=== PATIENT | female | born 1975 | race Caucasian/White ===

== ENCOUNTER 2021-12-15 15:05 | Outpatient (CLI) | payer OTHER, SELFPAY ==
--- NOTE | ~2021-12-15 | CT_ITS ---
EXAMINATION: CT abdomen wo con DATE: 12/15/2021 15:22 INDICATION: Recurrent incisional hernia TECHNIQUE: Computed tomography (CT) of the abdomen was performed without intravenous contrast. Automa samina exposure control and iterative reconstruction technique were employed. Exam dose: 1150.28 mGy-cm total exam DLP. COMPARISON: None. FINDINGS: There is a 4.5 cm deep 6 cm vertical 4.8 cm wide fat-containing left periumbilical abdomina l wall hernia with 4.4 cm wide mouth, with a small bowel loop situated near the mouth of the hernia. No small bowel obstruction. Small sliding hiatal hernia. Postoperative change of the stomach. The liver, gallbladder, bile ducts, spleen, pancreas and pancreatic duct as well as the adrenal gland s and kidneys are unremarkable on this limited noncontrast examination. Normal caliber of the abdominal aorta. No intraperitoneal or retroperitoneal or pelvic mass lesion or adenopathy or ascites. Included skeletal structures are unremarkable other than degenerative spurring of the thoracic and to a lesser extent lumbar spine. No suspicious osteolytic or osteoblastic lesions. The lung bases are clear. Heart size is normal. No pericardial or pleural effusion. IMPRESSION: 4.5 x 6 x 4.8 cm left periumbilical abdominal wall hernia containing fat Small sliding hiatal hernia Postoperative change of the stomach Reviewed, dictated and finalized at [facility]. Reviewed, dictated and finalized at location [facility]. IMPRESSION: 4.5 x 6 x 4.8 cm left periumbilical abdominal wall hernia containi ng fat Small sliding hiatal hernia Postoperative change of the stomach
== END 2021-12-15 15:06 | disposition home or self-care (01) ==
PROVIDERS: PCP Nurse Practitioner Family; Visit Provider Surgery
DX: K43.2 Incisional hernia without obstruction or gangrene (principal); K44.9 Diaphragmatic hernia without obstruction or gangrene
CPT/HCPCS: 74150

== ENCOUNTER 2022-02-09 09:42 | Outpatient (CLI) | payer OTHER, SELFPAY ==
--- NOTE | 2022-02-09 10:10 | ECG_ITS ---
Measurements Intervals [place] Rate: 55 P: 16 CA: 198 QRS: -6 QRSD: 99 T: 24 QT: 423 QTc: 407 Interpretive Statements SINUS BRADYCARDIA WITH SINUS ARRHYTHMIA BASELINE ARTIFACT LOW QRS VOLTAGE IN PRECORDIAL LEADS BORDERLINE ECG NO PREVIOUS ECG AVAILABLE FOR COMPARISON Electronically Signed On 02-09-2022 16:28:00 CDT by Iain Chavira M.D.
== END 2022-02-09 09:43 | disposition home or self-care (01) ==
LOC: ANHSURGERY 09:46
PROVIDERS: PCP Nurse Practitioner Family; Visit Provider Surgery
DX: K43.2 Incisional hernia without obstruction or gangrene (principal); R94.31 Abnormal electrocardiogram [ECG] [EKG]
CPT/HCPCS: 36415; 86850; 86900; 86901; 93005

== ENCOUNTER 2022-02-11 02:38 | Day surgery (SDC) | payer OTHER, SELFPAY ==
[2022-02-05 13:19] VITALS: BMI 38.4
--- NOTE | 2022-02-05 13:25 | PC.NURSE ---
Report to the Outpatient Waiting Room, entrance under the green pavilion located off [facility], at time __10:00AM___ on date __1-45-16___. OR Time: __12:00PM__. - You and your visitor will be asked to self-screen and do not enter if you have any COVID symptoms. - Only one visitor and NO children visitors are allowed at this time. - The patient visitor is requested to leave or wait in car when not with patient due to restrictions. - A mask is required within the hospital. Patients may have clear liquids (water, carbonated beverages, clear teas, apple juice) until 3 hours prior to surgery with a maximum of 20 ounces. - No food from midnight until time of surgery - CLEAR LIQUIDS UNTIL 09:00AM Take the following medications with a SIP of water the morning of surgery: N/A Medications to discontinue per physician VITAMINS Date to take last bcib [id number] Please no make-up, nail kinyarwanda, hairspray, perfume, deodorant, or body powder the day of surgery. No jewelry (including any body piercings) or valuables the day of surgery, leave them at home. Please take a shower or bath the night before, or the morning of, surgery with an antibacterial soap. Wear comfortable, loose fitting clothing. - Jewelry must be removed prior to entering the operating room. Rings and piercings that are not removed may be cut off. - The hospital will not accept responsibility for valuables. - Please leave all valuables, including medications, at home the day of surgery. If you are going home after surgery, a licensed regional owner operator truck driver must drive you home. - NO public transportation without another adult. - We recommend that an adult stay with you for 24 hours following discharge. - We also recommend that you do not drive, make important decision, drink alcoholic beverages, or take any drugs that were not prescribed by your health care provider for at least 24 hours after your discharge time. Follow any additional instructions given to you from your surgeon. If you or anyone in your household have experienced Covid symptoms in the past week, please notify your surgeon or the nurse liaison at the phone number below for possible testing. Telephone instructions given to ____PATIENT and asked if any additional questions and then verbalized understanding. Patient advised to call surgeon office or pre surgery nurse liaison [phone] if any additional questions.
--- NOTE | 2022-02-10 14:03 | WPDANESEPPF ---
Anes - Initial Pre Proc Eval Procedure: Operation Date: 02/11/22 11:00 Proposed Procedures p Open Recurrent Incisional Hernia Repair with Mesh, Bilateral Component Separation, Removal of Old Mesh - Kyaw Avila DO <Bryon Chaney DO - Last Filed: 03/02/22 15:38> Date/Time: 02/10/22 14:03 <Bryon Chaney DO - Last Filed: 03/02/22 15:38> Surgeon: Kyaw Avila DO <Bryon Chaney DO - Last Filed: 03/02/22 15:38> Pre Op Diagnosis: Recurrent Incisional Hernia <Bryon Chaney DO - Last Filed: 03/02/22 15:38> Patient Data Age: 47 Gender: F Height: 1.75 m Weight: 118 kg <Bryon Chaney DO - Last Filed: 03/02/22 15:38> Allergies Allergy/AdvReac Type Severity Reaction Status Date / Time No Known Allergies Allergy Verified 02/19/22 11:57 <Bryon Chaney DO - Last Filed: 03/02/22 15:38> Home Medications Medication Instructions Recorded Confirmed Type [id number] 18 mg-FA 400 1 tablet PO DAILY 12/05/21 02/18/22 History mcg-calcium 500 mg-vit K 50 mcg tablet (Women's Multivitamin) oxycodone-acetaminophen 5 mg-325 1 tablet PO Q6H PRN pain #14 tabs 02/12/22 02/18/22 Rx mg tablet (Percocet) polyethylene glycol 3350 17 gram 17 g PO QAM 7 days #7 ea 02/12/22 02/18/22 Rx oral powder packet (Miralax) oxycodone-acetaminophen 5 mg-325 1 tablet PO Q4H PRN pain #20 tabs 02/20/22 Rx mg tablet (Percocet) <Bryon Chaney DO - Last Filed: 03/02/22 15:38> Patient hx anesthesia problems: none <Don Avina MD - Last Filed: 02/11/22 09:44> Family hx anesthesia problems: none <Don Avina MD - Last Filed: 02/11/22 09:44> Results Review: All pre-operative results and documents have been reviewed as part of the pre-operative evaluation. <Bryon Chaney DO - Last Filed: 03/02/22 15:38> [facility] Past Medical History Medical History: Medical History Anxiety GERD (gastroesophageal reflux disease) <Bryon Chaney DO - Last Filed: 03/02/22 15:38> Surgical History Surgical History: Surgical History History of repair of hiatal hernia 2021 History of sleeve gastrectomy History of tubal ligation 1995 Hx of section 1993 & 1995 Hx of shoulder surgery Right shoulder- 2007 Hx of umbilical hernia repair 06/04/2021, Dr. Urias ([facility]) <Bryon Chaney DO - Last Filed: 03/02/22 15:38> Social History Social History: Social History Smoking status: Never smoker Second hand tobacco smoke exposure: No Alcohol intake: never Substance use: never Substance use type: does not use Spiritual care concerns: No <Bryon Chaney DO - Last Filed: 03/02/22 15:38> Anes - Eval Final PreProcedure Day of Procedure 02/10/22 14:03 <Bryon Chaney DO - Last Filed: 03/02/22 15:38> Patient weight: obese <Bryon Chaney DO - Last Filed: 03/02/22 15:38> Heart: regular rate and rhythm <Bryon Chaney DO - Last Filed: 03/02/22 15:38> Lungs: clear to auscultation <Bryon Chaney DO - Last Filed: 03/02/22 15:38> Airway: Mallampati scale class II <Bryon Chaney DO - Last Filed: 03/02/22 15:38> Neurological: alert and oriented <Bryon Chaney DO - Last Filed: 03/02/22 15:38> Last oral intake: >/= 8 hours <Bryon Chaney DO - Last Filed: 03/02/22 15:38> ASA classification: II <Bryon Chaney DO - Last Filed: 03/02/22 15:38> Emergent: no <Bryon Chaney DO - Last Filed: 03/02/22 15:38> Anesthetic plan: proceed <Bryon Chaney DO - Last Filed: 03/02/22 15:38> Anesthesia type and m
[2022-02-11] VITALS (13 sets, daily range): BP systolic 98–125; BP diastolic 60–94; PULSE 46–62; RESP 12–21; TEMP 36–36.6; O2SAT 93–100
[2022-02-11] MEDS: ACETAMINOPHEN 500 MG TABLET 1000 MG PO ×2 (09:12→17:32)
[2022-02-11] MEDS: LACTATED RINGERS 1,000 ML 30 ML IV CONT ×2 (09:35→14:56)
[2022-02-11] MEDS: KETOROLAC 15 MG/ML VIAL (*BKC) IV PUSH (09:41)
--- NOTE | 2022-02-11 10:11 | WPDHPUPDATE1 ---
History and Physical Update Update Date/Time: 02/11/22 10:11 History and Physical has been reviewed, including an updated exam of the patient. There are NO changes in the patient's condition. Risks, benefits, and alternatives have been discussed and questions answered. Patient agrees to proceed with procedure.
--- NOTE | 2022-02-11 10:11 | PM.IMHP ---
H&P: HPI History of Present Illness Date/Time: 02/11/22 10:11 Chief Complaint: Recurrent hernia Narrative: 47 yo woman presents for recurrent incisional hernia repair. She denies any changes since last seen in office. Review of Systems Review of Systems: All systems reviewed & are unremarkable except as noted in HPI and below Constitutional: Constitutional: Denies chills, Denies fever(s), Denies headache(s) and Denies weight loss Eyes: Eyes: Denies change in vision ENT: Denies dizziness, Denies headache(s), Denies neck mass and Denies throat swelling Cardiovascular: Cardiovascular: Denies chest pain, Denies lightheadedness and Denies dyspnea Respiratory: Respiratory: Denies cough, Denies dyspnea and Denies wheezing Gastrointestinal: Gastrointestinal: Denies abdominal pain, Denies change in bowel habits, Denies nausea and Denies vomiting Genitourinary: Genitourinary: Denies hematuria and Denies dysuria Musculoskeletal: Musculoskeletal: Reports as per HPI Integumentary/Breasts: Skin/Breast: Reports as per HPI Neurologic: Denies dizziness and Denies headache(s) Allergic/Immunologic: Allergic/Immunologic: Denies throat swelling and Denies wheezing [facility] Surgical History Surgical History (Updated 02/10/22 @ 14:03 by Bryon Chaney DO) History of repair of hiatal hernia 2021 History of sleeve gastrectomy History of tubal ligation 1995 Hx of section 1993 & 1995 Hx of shoulder surgery Right shoulder- 2007 Hx of umbilical hernia repair 06/04/2021, , Dr. Urias ([facility]) Social History Social History Smoking status: Never smoker Second hand tobacco smoke exposure: No Alcohol intake: never Substance use: never Substance use type: does not use Living arrangements: with family Spiritual care concerns: No Meds Home Medications and Allergies Home Medications Medication Instructions Recorded Confirmed Type qwnwyvmz-jcp-bfzc 18 mg-FA 400 1 tablet PO DAILY 12/05/21 02/11/22 History mcg-calcium 500 mg-vit K 50 mcg tablet (Women's Multivitamin) Allergies Allergy/AdvReac Type Severity Reaction Status Date / Time No Known Allergies Allergy Verified 02/11/22 09:08 Vital Signs Vital Signs - 24 hr 02/11/22 09:23 Temperature 36.3 C L Pulse Rate 57 L Respiratory Rate 16 Blood Pressure 125/94 H Pulse Oximetry 100 Oxygen Delivery Room Air Exam Const: General: no acute distress and alert Orientation/consciousness: patient oriented x3 HENMT: Head: normocephalic and atraumatic Ears: hearing grossly normal bilaterally General nose exam: Normal nares present Mouth: Yes Normal oral and palatal mucosa present Eyes: Periorbital: periorbital findings normal Sclera: sclerae normal EOM: EOMs intact bilaterally Neck: Neck: normal visual inspection, no lymphadenopathy and trachea midline Chest: Chest palpation & inspection: normal inspection of the chest Resp: Effort & Inspection: normal respiratory effort Auscultation: clear to auscultation bilaterally Cardio: Jugular venous distension: no JVD Rate: regular rate Rhythm: regular rhythm Heart sounds: S1 normal heart sound present and S2 normal heart sound present Peripheral pulses: Peripheral pulses 2+ throughout GI: Inspection: normal to inspection GI Palp: Yes Soft to palpation, No Tenderness to palpation present (GI), No Guarding due to palpation present (GI), Yes Hernia present (large recurrent incisional hernia centered on umbilicus) and No Rebound tenderness present Percussion: Yes normal to percussion Auscultation: normal bowel sounds : General: Yes no CVA tenderness Back/Spine/Pelvis: Back: no CVA tenderness Neuro: General: patient oriented x3, no focal motor deficits and CN's II-XI intact bilaterally Cognition (Neuro): normal cognition Speech: normal speech Motor exam (neuro): 5/5 motor strength present throughout Extrem: General: capillary refill n
--- NOTE | 2022-02-11 11:20 | WPDANESPNB ---
Anes - Peripheral Nerve Block Date/Time: 02/11/22 11:20 I have discussed with the patient/family/POA the placement of a peripheral nerve block for post-operative pain management, including associated risks, benefits, complications, and side effects. Alternative methods of post-operative analgesia were detailed. Questions were solicited and answers provided to the satisfaction of the patient/family/POA. Time-Out: A pre-procedural Time-Out was completed immediately before starting the procedure and confirmed: Patient Identification, Site, Procedure, Patient Position and the Availability of Requisite Equipment. Clinical Indications: Acute post-operative pain management requested by the operative surgeon. Nerve Block Insertion Note Anes-nerve block: other (bilateral T7 CORKY block) Patient position: other (sitting) Skin prep: chlorhexidine Needle: 22 gauge, stimulating, insulated echogenic needle. Needle length: 80 mm Technique: ultrasound (in plane) Injectate: bupivacaine 0.25% with epi 5 mcg/ml (20cc/side) Observations: tolerated well Complications: none Procedure start time:: 1200 Procedure end time:: 1205
--- NOTE | 2022-02-11 11:28 | SUR.PREOP ---
Discussed delay with patient. No other needs at present.
[2022-02-11] MEDS: ceFAZolin 2 GM/D5W 50 ML 2 GM/50 ML BAG IVPB ×2 (12:07→20:00)
--- NOTE | 2022-02-11 14:54 | W.PM.PROC2 ---
Procedure Note - Detailed Date of Procedure 02/11/22 Pre-op Diagnosis Recurrent Incisional Hernia Post-op Diagnosis Same Procedure Performed 1. Open retro rectus recurrent incisional hernia repair with mesh 2. Bilateral myofascial release (2 cm on the right and 2 cm on the left) 3. Removal of mesh foreign body Surgeon Kyaw Avila DO Offset Printer Loy Stevenson MD Anesthesia General and Local (Exparel) Indications This is a 47-year-old woman who presents with a recurrent hernia near umbilicus. She had a prior hernia repair laparoscopically with mesh and had a recurrence. This was then repaired a 2nd time laparoscopically with mesh happened to recur again. At the time of his previous hernia repairs she was quite a bit have year. Recently she underwent sleeve gastrectomy and has lost significant amount weight. Her BMI is down to 38. A CT abdomen was performed and showed evidence of approximately 5 cm wide hernia defect containing fat. Discussions were made with the patient about surgical options and due to the multiple prior recurrences with the laparoscopic method, recommended proceeding with open recurrent incisional hernia repair with mesh with bilateral component separation. Findings Open recurrent incisional hernia repair was performed. The patient had a 5 cm defect located at the umbilicus and extending just superior. The hernia sac contained part of the previous mesh as well some omentum. Adhesions were taken and the prior mesh was removed and sent to the lab for pathology. Hernia sac was then excised and sent to the for pathology. Carefully examined the abdominal cavity and no other abnormalities were noted. A posterior rectus sheath release was performed and by entering into the retrorectus plane was able to dissect far enough laterally to neurovascular bundles on each side. This was extended cephalad for an overlap of about 10 cm and caudad for an overlap of about 10 cm. Once this was performed it appeared that I had about 2 cm of release on each side and was able to bring the fascia together in the midline without too much tension. Once the posterior rectus sheath was closed I then placed a Bard soft mesh measuring 12 cm wide by 25 cm vertically. This was placed within the retrorectus space. The fascia was then closed over the mesh to close the hernia defect using 0 PDS running suture starting from each end and meeting in the middle. Dr. Stevenson assisted for the entire length of the procedure including the adhesiolysis, mesh removal, posterior rectus release, and mesh placement. Description of Procedure Procedure as well as risks, benefits, alternatives were discussed with the patient. Written consent was obtained and placed in chart prior to procedure. Patient was brought back to surgical suite. She was placed supine on operating table. Time-out was done to confirm patient and procedure. She was then intubated by the anesthesia department. Her abdomen was prepped and draped in sterile fashion using chlorhexidine prep. A 20 cm vertical midline incision was made from just above the umbilicus to just below it using a 10 blade scalpel. Electrocautery was used for hemostasis and for dissection through the subcutaneous tissue. The hernia sac was encountered and this was carefully dissected off of the umbilicus using electrocautery. The hernia sac was then dissected away down to fascia. The fascia was then cleared circumferentially around the hernia defect. The hernia sac was entered using electrocautery hernia sac contents were carefully inspected. The hernia sac was then excised with electrocautery. The mesh that was protruding within the hernia sac was carefully excised with electrocautery. There were a few omental adhesions that were then taken down from the mesh as well using electrocautery. This allowed me to completely free up the mesh in remove it and send it for pathology. The linea alba opening was then extended cephalad and c
[2022-02-11] MEDS: fentaNYL CITRATE INJ (*CRX) 100 MCG/2 ML VIAL 25 MCG IV PUSH ×4 (15:44→15:54)
[2022-02-11 16:44] LABS: Mean Platelet Volume 9.7 fl (7.4-10.4); Platelet Count Result 287 k/mm3 (150-375)
[2022-02-11 17:00] LABS: Estimated CRCL calculation 135 ml/min; Estimated Glomerular Filt Rate > 60
[2022-02-11] MEDS: oxyCODONE HCL (*CRX) 5 MG TAB IR 10 MG PO (17:31)
[2022-02-11] MEDS: LACTATED RINGERS 1,000 ML 100 ML IV CONT (17:32)
[2022-02-11] MEDS: oxyCODONE HCL (*CRX) 5 MG TAB IR PO (20:00)
[2022-02-12] MEDS: ACETAMINOPHEN 500 MG TABLET 1000 MG PO ×3 (00:29→11:40)
[2022-02-12] MEDS: oxyCODONE HCL (*CRX) 5 MG TAB IR PO (00:29)
[2022-02-12] MEDS: ceFAZolin 2 GM/D5W 50 ML 2 GM/50 ML BAG IVPB ×2 (04:08→11:39)
[2022-02-12 04:16] VITALS: BP 101/63; PULSE 65; RESP 17; TEMP 37; O2SAT 95
[2022-02-12 05:46] LABS: Hemoglobin 10.8 g/dL (12.0-15.0); Mean Corpuscular HGB Conc 31.8 g/dl (32-36); Mean Corpuscular Volume 91.4 fl (80-100); Mean Platelet Volume 9.9 fl (7.4-10.4); Platelet Count Result 272 k/mm3 (150-375); Red Blood Count 3.72 M/mm3 (4.2-5.4); Red Cell Distribution Width 14.5 % (11.5-14.5)
[2022-02-12 05:58] LABS: Potassium 3.9 mmol/L (3.4-5.0)
[2022-02-12 06:01] LABS: Anion Gap 8 mmol/L (8-16); Blood Urea Nitrogen 11 mg/dL (7-17); Calcium 8.5 mg/dL (8.4-10.2); Carbon Dioxide 25 mmol/L (22-30); Chloride 103 mmol/L (98-107); Estimated CRCL calculation 117 ml/min; Estimated Glomerular Filt Rate > 60; Glucose 110 mg/dL (65-110); Sodium 136 mmol/L (137-145)
[2022-02-12] MEDS: ENOXAPARIN 40 MG/0.4 ML SYRINGE SUB-Q (08:03)
[2022-02-12] MEDS: polyethylene glycoL 3350 17 GM POWD.PACK PO (08:04)
[2022-02-12 09:44] VITALS: BP 107/58; PULSE 56; RESP 16; TEMP 36.4; O2SAT 96
[2022-02-12 09:59] VITALS: O2SAT 96
[2022-02-12] MEDS: HYDROmorphone HCL INJ (*CRX) 1 MG/ML SYR IV PUSH (11:38)
[2022-02-12] MEDS: CALCIUM CARBONATE (TUMS) 500 MG (200 MG ELEMENTAL) PO (11:40)
--- NOTE | 2022-02-12 13:00 | WPDANESPN ---
Anes - Prog Note Post-Op Date/Time: 02/12/22 13:00 Cardiovascular status: normal Respiratory status: normal Airway patency: baseline Mental status: baseline Post-Op hydration status: normal Vital Signs: Last Vital Signs Temp 36.4 C L 02/12/22 09:44 Pulse 56 L 02/12/22 09:44 Resp 16 02/12/22 09:44 BP 107/58 L 02/12/22 09:44 Pulse Ox 96 02/12/22 09:59 O2 Del Method Room Air 02/12/22 09:59 O2 Flow Rate 8 02/11/22 15:25 Pain Score (VAS): 4 I/O: Intake & Output 02/11/22 02/12/22 02/12/22 23:59 07:59 15:59 Intake Total 395 1150 Output Total 250 Balance 395 900 Laboratory Tests 02/12/22 05:11 02/12/22 05:11 02/11/22 02/11/22 02/12/22 16:39 16:39 05:11 WBC 14.0 H RBC 3.72 L Hgb 10.8 L Hct 34.0 L MCV 91.4 MCH 29.0 MCHC 31.8 L RDW 14.5 Plt Count 287 272 MPV 9.7 9.9 Sodium Potassium Chloride Carbon Dioxide Anion Gap BUN Creatinine 0.60 L Estim Creat Clear Calc 135 Estimated GFR > 60 Glucose Calcium 02/12/22 05:11 WBC RBC Hgb Hct MCV MCH MCHC RDW Plt Count MPV Sodium 136 L Potassium 3.9 Chloride 103 Carbon Dioxide 25 Anion Gap 8 BUN 11 Creatinine 0.70 Estim Creat Clear Calc 117 Estimated GFR > 60 Glucose 110 Calcium 8.5 Post-procedural complaints: none Patient Feedback: Patient satisfied with anesthetic care.
[2022-02-12 13:40] VITALS: BP 90/58; PULSE 59; RESP 16; TEMP 36.4; O2SAT 96
--- NOTE | 2022-02-12 14:22 | PM.DS ---
DS: Admitting Diagnosis Discharge Date 02/12/2022 Admitting Diagnosis Recurrent incisional hernia Obesity DS: Discharge Diagnosis Discharge Diagnosis (1) Recurrent incisional hernia: Code(s): K43.2 - Incisional hernia without obstruction or gangrene Status: Acute (2) BMI 40.0-44.9, adult: Code(s): Z68.41 - Body mass index [BMI] 40.0-44.9, adult Status: Acute DS: Summary Hospital Course Reason for hospitalization: This is a 47-year-old woman who presented for recurrent incisional hernia repair after being evaluated by Dr. Clark in our office. Her surgical history is mentioned in the office visit with 2 previous robotic assisted laparoscopic hernia repairs, and a sleeve gastrectomy and hiatal hernia repair in [place] in August of 2021. She presented yesterday for recurrent incisional hernia repair. Hospital Course: She underwent open retro rectus recurrent incisional hernia repair with mesh, bilateral myofascial release, and removal of mesh foreign body by Dr. Clark on 02/11/2022. She did well postoperatively. She was slowly advanced on her diet postop day 1. She did complain of some heartburn earlier this morning, but is now tolerating a regular diet without complaints. Pain is well controlled. She feels she is tolerating activity and walking around the room. Voiding without any difficulty. She was given an abdominal binder to wear now and after discharge. She is doing well and stable for discharge this afternoon. Status at Discharge Functional status at discharge: independent ambulation Overall status at discharge: patient is progressing back to baseline Time Spent with Patient Time attestation: Total time spent providing and/or coordinating discharge services: Time spent: Less than 30 minutes Exam Const: General: comfortable, no acute distress and awake Orientation/consciousness: patient oriented x3 Resp: Effort & Inspection: normal respiratory effort Auscultation: clear to auscultation bilaterally Cardio: Rate: regular rate Rhythm: regular rhythm GI: Inspection: non-distended and incision (Abdominal incision clean and dry, glue intact.) GI Palp: Yes Soft to palpation and Yes Tenderness to palpation present (GI) (incisional) Auscultation: normal bowel sounds Neuro: General: moves all extremities and no focal motor deficits Extrem: General: no clubbing, cyanosis or edema and no calf tenderness Psych: Mental Status: mental status grossly normal Insight: Good insight present (Psych) DS: Data Data Completed and Pending Pending studies at discharge: Pending at discharge 02/11/22 12:46 Surgical [PTH] Routine Surgical [PTH] Routine Labs on day of discharge: Labs from last 24 hours 02/12/22 02/12/22 02/11/22 05:11 05:11 16:39 WBC 14.0 H RBC 3.72 L Hgb 10.8 L Hct 34.0 L MCV 91.4 MCH 29.0 MCHC 31.8 L RDW 14.5 Plt Count 272 MPV 9.9 Sodium 136 L Potassium 3.9 Chloride 103 Carbon Dioxide 25 Anion Gap 8 BUN 11 Creatinine 0.70 0.60 L Estim Creat Clear Calc 117 135 Estimated GFR > 60 > 60 Glucose 110 Calcium 8.5 02/11/22 16:39 WBC RBC Hgb Hct MCV MCH MCHC RDW Plt Count 287 MPV 9.7 Sodium Potassium Chloride Carbon Dioxide Anion Gap BUN Creatinine Estim Creat Clear Calc Estimated GFR Glucose Calcium Discharge Plan Discharge Patient Disposition: Home, Self-Care Discharge Instructions: DISCHARGE INSTRUCTION SHEET FOR HERNIA SURGERIES DR. CLARK 1. May shower in 24 hours, no soaking in bath x 2weeks. 2. Call office for: Wound increasingly painful or bleeding Vomiting Fever of greater than 101 degrees 3. If no bowel movement for three days, take 1 oz. (30 ml) Milk of Magnesia or MiraLax 17g 1 to 2 times daily. 4. No heavy lifting > 10-15 pounds x until further instructed in follow-up with the surgeon. 5. No driving for 3 days o
== END 2022-02-12 16:43 | disposition home or self-care (01) ==
LOC: ANHSURGERY 09:01 → ANH2MED 16:18
PROVIDERS: PCP Nurse Practitioner Family; Visit Provider Surgery
PROC: 0WQF0ZZ Repair Abdominal Wall, Open Approach (ICD-10-PCS; CPT 49565; principal; 2022-02-11 11:00)
DX: K43.2 Incisional hernia without obstruction or gangrene (principal); G89.18 Other acute postprocedural pain; Z98.84 Bariatric surgery status; Z68.38 Body mass index [BMI] 38.0-38.9, adult
CPT/HCPCS: 49565; 49568; 15734; 64461; 36415; 80048; 82565; 85027; 85049; 88300; 88302; A9270; C1781; C9290; J0330; J0690; J1100; J1170; J1650; J1885; J2250; J2405; J2704; J2710; J3010; J7120

== ENCOUNTER 2022-02-18 09:24 | Inpatient (IN) | payer OTHER, SELFPAY ==
[2022-02-18] VITALS (8 sets, daily range): BP systolic 109–132; BP diastolic 74–90; PULSE 52–68; RESP 16–18; TEMP 36.2–36.5; O2SAT 97–100; BMI 38.4
--- NOTE | ~2022-02-18 | CT_ITS ---
EXAMINATION: CT abdomen pelvis w con DATE: 02/18/2022 11:28 INDICATION: Right abdominal pain. Umbilical hernia. TECHNIQUE: Computed tomography (CT) of the abdomen and pelvis was performed with 100 mL Omnipaque 350 intravenous contrast. Automated exposure control and iterative reconstruction technique were employe d. The dose-length product was 1539.51 mGy-cm. COMPARISON: CT abdomen 12/15/2021 FINDINGS: The visualized portions of the lung bases demonstrate mild atelectasis. No pleural effusion . The heart size is normal. No pericardial effusion. There is a small sliding hiatal hernia. There ar e surgical changes of the stomach, likely a gastric sleeve procedure. The liver is normal. The gallbl adder is distended. The spleen, pancreas, adrenal glands, and kidneys are normal. The appendix is nor mal. There are changes of ventral hernia repair. There are multiple loops of small bowel superficial to the mesh with wall thickening of some of the small bowel. The small bowel is fluid-filled and dila samina proximal to this area, consistent with obstruction. Distal small bowel is decompressed. There is a small volume of ascites. There are no pathologically enlarged lymph nodes. There is mild thoracolum bar spondylosis. IMPRESSION: 1. Small bowel superficial to the ventral mesh with small bowel obstruction. 2. Small volume of ascites. 3. Gallbladder distention, which may be secondary to fasting. Reviewed, dictated and finalized at location A.
--- NOTE | 2022-02-18 10:27 | ED.ABDPAIN ---
HPI - Abdominal Pain General Chief Complaint: Abdominal Pain <Ivy Tobin PA-C - Last Filed: 02/18/22 14:47> Stated Complaint: surgery wed - pain now <RANDA Garrett Last Filed: 02/18/22 14:47> Time Seen by Provider: 02/18/22 09:38 <Ivy Tobin PA-C - Last Filed: 02/18/22 14:47> History of Present Illness HPI narrative: Patient is a 47-year-old female with a history of recent laparoscopic hernia repair here for evaluation of severe right-sided abdominal pain for the past 8 hours. Patient states that she woke up with a stabbing pain under her incision site. States that the pain is been constant, unrelieved by her oxycodone that was prescribed in the postoperative period. Pain does not radiate. She denies any nausea, vomiting, fevers or chills. Her last bowel movement was yesterday and was normal for her, no blood in stool. Patient has a history of multiple abdominal surgeries, 2 previous robotic assisted laparoscopic hernia repairs, and a sleeve gastrectomy and hiatal hernia repair in [place] in August of 2021. Most recent surgery was revision of previous hernia repair done on 02/13. <RANDA Garrett Last Filed: 02/18/22 14:47> Related Data Home Medications: Home Medications Medication Instructions Recorded Confirmed [id number] 18 mg-FA 400 1 tablet PO DAILY 12/05/21 02/18/22 mcg-calcium 500 mg-vit K 50 mcg tablet (Women's Multivitamin) <RANDA Garrett Last Filed: 02/18/22 14:47> Allergies/Adverse Reactions: Allergies Allergy/AdvReac Type Severity Reaction Status Date / Time No Known Allergies Allergy Verified 02/18/22 15:46 <RANDA Garrett Last Filed: 02/18/22 14:47> Review of Systems Review of Systems: Gen: Denies fevers or chills Eyes: Denies eye pain or visual change ENT: Denies congestion Respiratory: Denies shortness of breath or cough CV: Denies chest pain or palpitations GI: Reports abdominal pain. Denies nausea, emesis or diarrhea denies burning, urgency, frequency or hematuria Musculoskeletal: Denies back pain or muscle pain Neuro: Denies numbness, tingling, weakness or focal weakness Skin: Denies rash Except as documented, all other systems reviewed and negative <Ivy Tobin PA-C - Last Filed: 02/18/22 14:47> [facility] Past Medical History Medical History: Medical History Anxiety GERD (gastroesophageal reflux disease) <Ivy Tobin PA-C - Last Filed: 02/18/22 14:47> Surgical History Surgical History: Surgical History History of repair of hiatal hernia 2021 History of sleeve gastrectomy History of tubal ligation 1995 Hx of section 1993 & 1995 Hx of shoulder surgery Right shoulder- 2007 Hx of umbilical hernia repair 06/04/2021, , Dr. Urias ([facility]) <Ivy Tobin PA-C - Last Filed: 02/18/22 14:47> Social History Social History: Social History Smoking status: Never smoker Second hand tobacco smoke exposure: No Alcohol intake: never Substance use: never Substance use type: does not use Spiritual care concerns: No <Ivy Tobin PA-C - Last Filed: 02/18/22 14:47> Exam Narrative: APPEARANCE: Uncomfortable appearing Head: Normocephalic and atraumatic. EYES: PERRLA/EOMI, conjunctivae clear NOSE: No nasal drainage EARS: External ear normal in appearance THROAT: Oropharynx is clear. Mucous membranes are moist. NECK: Supple. No adenopathy, no masses. RESPIRATORY: Airway patent, respirations nonlabored. Clear to auscultation bilaterally, no rales, rhonchi, wheezing. CARDIOVASCULAR: Regular rate and rhythm without murmurs, rubs, or gallops. ABDOMINAL: Vertical surgical scar is healing
[2022-02-18] MEDS: MORPHINE SULFATE (*CRX) 4 MG/ML INJ IV PUSH ×4 (10:31→20:17)
[2022-02-18 10:48] LABS: Basophils Absolute Auto 0.1 K/mm3 (0.0-0.1); Basophils Percent Auto 0.7 % (0.2-1.2); Eosinophils Absolute Auto 0.6 K/mm3 (0-0.3); Eosinophils Percent Auto 8.1 % (0-4.4); Hematocrit 38.6 % (37.0-47.0); Hemoglobin 12.2 g/dL (12.0-15.0); Immature Granulocyte Absolute 0.04 K/mm3 (0.00-0.031); Immature Granulocyte Percent A 0.5 % (0-0.5); Lymphocytes Absolute Auto 1.65 K/mm3 (0.9-3.2); Mean Corpuscular HGB Conc 31.6 g/dl (32-36); Mean Corpuscular Hemoglobin 28.7 pg (26-34); Mean Corpuscular Volume 90.8 fl (80-100); Mean Platelet Volume 9.6 fl (7.4-10.4); Monocytes Absolute Auto 0.5 K/mm3 (0.1-0.6); Monocytes Percent Auto 7.2 % (2.6-8.5); Neutrophils Absolute Auto 4.6 K/mm3 (1.3-6.7); Neutrophils Percent Auto 61.5 % (45.5-73.1); Platelet Count Result 370 k/mm3 (150-375); Red Blood Count 4.25 M/mm3 (4.2-5.4); Red Cell Distribution Width 14.5 % (11.5-14.5); White Blood Count 7.5 K/mm3 (4.5-10.0)
[2022-02-18 10:48] LABS: Appearance Urine Slightly Cloudy (Clear); Bilirubin Urine 1+ (Negative); Glucose Urine UA Negative (Negative); Ketones Urine Trace mg/dL (Negative); Leukocyte Esterase Ur Negative LEU/UL (Negative); Nitrate Urine Negative (Negative); Protein Urine 1+ mg/dL (Negative); Specific Grav Ur >= 1.030 (1.001-1.035); pH Urine 5.5 (5.0-9.0)
[2022-02-18 10:49] LABS: Add Urine Microscopic? YES; Blood Urine Trace-Intact (Negative); Color Urine Dark Yellow (Yellow)
[2022-02-18 10:56] LABS: Lactic Acid Reflex 1.2 mmol/L (0.7-2.0)
[2022-02-18 10:56] LABS: Bacteria Urine Trace /hpf; Calcium Oxalate Crystals Urine Present /hpf; Mucus Urine Heavy /lpf; Squamous Epithelial Cell Urine Many /hpf (Few)
[2022-02-18 10:58] LABS: Alanine Aminotransferase 31 U/L (6-35); Alkaline Phosphatase 111 U/L (38-126); Anion Gap 3 mmol/L (8-16); Aspartate Amino Transferase 41 U/L (14-36); Bilirubin,Total 0.6 mg/dL (0.2-1.3); Blood Urea Nitrogen 10 mg/dL (7-17); Calcium 8.6 mg/dL (8.4-10.2); Carbon Dioxide 24 mmol/L (22-30); Chloride 108 mmol/L (98-107); Estimated CRCL calculation 133 ml/min; Estimated Glomerular Filt Rate > 60; Glucose 98 mg/dL (65-110); Lipase 30 U/L (23-300); Potassium 4.2 mmol/L (3.4-5.0); Sodium 135 mmol/L (137-145)
[2022-02-18] MEDS: SODIUM CHLORIDE 0.9% IV 1,000 ML 999 ML IV CONT (12:20)
--- NOTE | 2022-02-18 13:40 | PM.IMHP ---
H&P: HPI History of Present Illness Date/Time: 02/18/22 13:40 Chief Complaint: Abdominal pain Narrative: This is a 47-year-old woman who recently underwent an open retro rectus recurrent incisional hernia repair with mesh, bilateral myofascial release, and removal of mesh foreign body by Dr. Avila on 02/11/22. She was discharged home on post-op day 1 doing well. She was sent home with Percocet and pain was well-controlled. She was tolerating her diet. After discharge, she continued to improve daily and was requiring less pain medication daily. She still feels sore, but overall felt like she was improving. She was tolerating a diet well, but had felt full quicker than normal. She attributed that to the post-op period. She has had a gastric bypass in the past and typically eats small meals at baseline. She reports flatus daily and had a BM yesterday or the day before, she cannot recall exactly. She woke up last night around 2:00 am with an acute onset of abdominal pain. The pain is located just right of the midline incision in the mid and upper abdomen. This is much worse pain than she has been experiencing over the past few days. Due to the pain, she presented to the ER for evaluation. CT scan of the abdomen/pelvis showed small bowel superficial to the ventral mesh with small bowel obstruction, small volume ascites, gallbladder distention. Labs are unremarkable. ED provider contacted our service. She is being admitted to our service and is seen in the ER. Review of Systems Review of Systems: All systems reviewed & are unremarkable except as noted in HPI and below Constitutional: Constitutional: Reports as per HPI, Reports no additional constitutional complaints, Denies chills, Denies fatigue and Denies fever(s) Eyes: Eyes: Reports no additional eye complaints ENT: Reports system reviewed and no additional complaints, except as documented and Reports Normal hearing present Cardiovascular: Cardiovascular: Reports no additional cardiovascular complaints, Denies chest pain and Denies leg edema Respiratory: Respiratory: Reports no additional respiratory complaints, Denies cough and Denies dyspnea Gastrointestinal: Gastrointestinal: Reports as per HPI, Reports no additional gastrointestinal complaints, Reports abdominal pain, Denies change in bowel habits, Denies change in stool character, Denies constipation, Denies nausea and Denies vomiting Genitourinary: Genitourinary: Reports no additional female genitourinary complaints, Denies hematuria, Denies nocturia, Denies dysuria and Denies urinary hesitancy Musculoskeletal: Musculoskeletal: Reports no additional musculoskeletal complaints, Denies deformity, Denies joint swelling and Denies numbness Integumentary/Breasts: Skin/Breast: Reports system reviewed and no additional complaints, except as docu and Reports other (no drainage or redness at incision) Neurologic: Reports system reviewed and no additional complaints, except as documented, Denies dizziness, Denies focal weakness, Denies numbness and Denies tingling PMFSH Past Medical History Medical History (Updated 02/18/22 @ 14:04 by NOE Calvert) Anxiety GERD (gastroesophageal reflux disease) Surgical History Surgical History History of repair of hiatal hernia 2021 History of sleeve gastrectomy History of tubal ligation 1995 Hx of section 1993 & 1995 Hx of shoulder surgery Right shoulder- 2007 Hx of umbilical hernia repair 06/04/2021, Dr. Urias ([facility], [place]) Social History Social History Smoking status: Never smoker Second hand tobacco smoke exposure: No Alcohol intake: never Substance use: never Substance use type: does not use Spiritual care concerns: No Meds Home Medications and Allergies Home Medications Medication Instructions Recorded
[2022-02-18] MEDS: SODIUM CHLORIDE 0.9% IV 1,000 ML 125 ML IV CONT ×2 (14:56→20:19)
--- NOTE | 2022-02-18 15:40 | ADMGEN ---
This patient, Ruchi Grullon, was admitted to [facility] Surg Room 331-02. Patient/family oriented to hospital policies and general routines including ID bracelet, bed and alarms, visiting hours, pain management, procedures, bathroom and other care routines, personal items, smoking policy, room service/diet, and visiting hours. Information on how to activate the Rapid Response Team has been discussed. Patient/Family are encouraged to report perceived risks to care and to ask questions if they do not understand what they are told or what they should do.
[2022-02-19] VITALS (18 sets, daily range): BP systolic 109–143; BP diastolic 71–96; PULSE 51–91; RESP 12–20; TEMP 36–37.2; O2SAT 95–100
[2022-02-19] MEDS: SODIUM CHLORIDE 0.9% IV 1,000 ML 125 ML IV CONT (05:34)
--- NOTE | 2022-02-19 07:47 | PM.PNGS ---
Progress Note: A&P Assessment and Plan (1) Recurrent incisional hernia with incarceration: Code(s): K43.0 - Incisional hernia with obstruction, without gangrene Status: Acute Assessment and Plan: I reviewed the CT and discussed the findings with the patient. She appears to have a disruption of the posterior rectus sheath as part of the component repair from her surgery 1 week ago. The mesh and anterior rectus sheath appear likely to be intact. The bowel is incarcerated within the retrorectus space and this will need to be surgically repaired. I discussed proceeding with laparoscopic incarcerated recurrent incisional hernia repair, da Radha assisted, possible open, possible bowel resection. The goal will be to reduce the small bowel from within the retro rectus space and close this space again. This may require placement of a mesh in the intra-abdominal space to prevent recurrent disruption or bowel obstruction in the future. I discussed with the patient that if this cannot be done laparoscopically, then I will have to open the old incision and perform the repair from an open approach. If the bowel is not viable she might require a bowel resection. Patient voiced her understanding. Subjective Subjective Date/Time Seen: 02/19/22 07:47 Interval history: Patient feels that the pain is slightly improved. She is not passing flatus and has not had a bowel movement for 3 days. She denies any nausea or vomiting. Exam GI: Inspection: non-distended and incision (Intact with glue) GI Palp: Yes Tenderness to palpation present (GI) (Slight tenderness in periumbilical region), No Guarding due to palpation present (GI) and No Rebound tenderness present Objective Data Vital Signs Vital Signs: Vital Signs - 24 hr 02/18/22 09:33 02/18/22 10:28 02/18/22 11:28 Temperature 36.2 C L Pulse Rate 68 60 60 Respiratory Rate 16 18 16 Blood Pressure 132/90 117/83 Pulse Oximetry 100 99 99 Oxygen Delivery 02/18/22 12:45 02/18/22 14:45 02/18/22 14:56 Temperature 36.2 C L Pulse Rate 63 60 52 L Respiratory Rate 16 18 17 Blood Pressure 130/74 129/76 109/77 Pulse Oximetry 98 98 100 Oxygen Delivery 02/18/22 17:00 02/18/22 22:00 02/19/22 06:00 Temperature 36.5 C 36.0 C L Pulse Rate 54 L 54 L Respiratory Rate 16 16 Blood Pressure 125/81 118/91 H Pulse Oximetry 100 97 95 Oxygen Delivery Room Air Intake/Output Intake/Output: Intake & Output 02/16/22 02/17/22 02/18/22 02/19/22 23:59 23:59 23:59 23:59 Intake Total 1999 999 Balance 1999 1000 Meds/Results Medications: Active Medications Generic Name Dose Route Start Last Admin Trade Name Freq PRN Reason Stop Dose Admin Sodium Chloride 1,000 mls @ 125 mls/hr 02/18/22 12:35 02/19/22 05:34 Normal Saline Iv IV CONT 125 mls/hr .Q8H KELLY Administration Morphine Sulfate 4 mg 02/18/22 12:31 02/18/22 20:17 Morphine Sulfate (*Crx) 4 Mg/Ml Inj IV PUSH 4 mg Q2H PRN Administration Pain Rated 7-10 Ondansetron HCl 4 mg 02/18/22 12:31 Ondansetron Inj 4 Mg/2 Ml Vial IV PUSH Q4H PRN Nausea Radiology Results: ITS Impressions Abdomen/Pelvis CT 02/18/22 11:40 IMPRESSION: 1. Small bowel superficial to the ventral mesh with small bowel obstruction. 2. Small volume of ascites. 3. Gallbladder distention, which may be secondary to fasting. Labs Labs: Laboratory Results - last 24 hr 02/18/22 02/18/22 02/18/22 10:32 10:38 10:38 WBC 7.5 RBC 4.25 Hgb 12.2 Hct 38.6 MCV 90.8 MCH 28.7 MCHC 31.6 L RDW 14.5 Plt Count 370 MPV 9.6 Immature Gran % (Auto) 0.5 Neut % (Auto) 61.5 Lymph % (Auto) 22.0 [place] % (Auto) 7.2 Eos % (Auto) 8.1 H Baso % (Auto) 0.7 Lymph # (Auto) 1.65 [place] # (Auto) 0.5 Eos # (Auto) 0.6 H Baso # (Auto) 0.1 Abs Immat Gran (auto) 0.04 H Absolute Neuts (auto) 4.6 Absolute Nucleated RBC 0.0 Nucleated R
--- NOTE | 2022-02-19 07:53 | WPDHPUPDATE1 ---
History and Physical Update Update Date/Time: 02/19/22 07:53 History and Physical has been reviewed, including an updated exam of the patient. There are NO changes in the patient's condition. Risks, benefits, and alternatives have been discussed and questions answered. Patient agrees to proceed with procedure.
--- NOTE | 2022-02-19 08:13 | WPDANESEPPF ---
Anes - Initial Pre Proc Eval Procedure: Operation Date: 02/19/22 13:00 Proposed Procedures p Laparoscopic Recurrent Incisional Hernia Repair, Davinci Assisted, - Kyaw Avila DO s Possible Open Bowel Resection - Kyaw Avila DO Date/Time: 02/19/22 08:13 Surgeon: Kyaw Avila DO Pre Op Diagnosis: post op complication Patient Data Age: 47 Gender: F Height: 1.75 m Weight: 118 kg Last Vital Signs Temp 36.0 C L 02/19/22 06:00 Pulse 54 L 02/19/22 06:00 Resp 16 02/19/22 06:00 BP 118/91 H 02/19/22 06:00 Pulse Ox 95 02/19/22 06:00 O2 Del Method Room Air 02/18/22 17:00 Allergies Allergy/AdvReac Type Severity Reaction Status Date / Time No Known Allergies Allergy Verified 02/19/22 11:57 Home Medications Medication Instructions Recorded Confirmed Type [id number] 18 mg-FA 400 1 tablet PO DAILY 12/05/21 02/18/22 History mcg-calcium 500 mg-vit K 50 mcg tablet (Women's Multivitamin) oxycodone-acetaminophen 5 mg-325 1 tablet PO Q6H PRN pain #14 tabs 02/12/22 02/18/22 Rx mg tablet (Percocet) polyethylene glycol 3350 17 gram 17 g PO QAM 7 days #7 ea 02/12/22 02/18/22 Rx oral powder packet (Miralax) Laboratory Tests 02/18/22 02/18/22 02/18/22 10:32 10:38 10:38 WBC 7.5 K/mm3 K/mm3 (4.5-10.0) RBC 4.25 M/mm3 M/mm3 (4.2-5.4) Hgb 12.2 g/dL g/dL (12.0-15.0) Hct 38.6 % % (37.0-47.0) MCV 90.8 fl fl (80-100) MCH 28.7 pg pg (26-34) MCHC 31.6 g/dl L g/dl (32-36) RDW 14.5 % % (11.5-14.5) Plt Count 370 k/mm3 k/mm3 (150-375) MPV 9.6 fl fl (7.4-10.4) Immature Gran % (Auto) 0.5 % % (0-0.5) Neut % (Auto) 61.5 % % (45.5-73.1) Lymph % (Auto) 22.0 % % (18.3-44.2) [place] % (Auto) 7.2 % % (2.6-8.5) Eos % (Auto) 8.1 % H % (0-4.4) Baso % (Auto) 0.7 % % (0.2-1.2) Lymph # (Auto) 1.65 K/mm3 K/mm3 (0.9-3.2) [place] # (Auto) 0.5 K/mm3 K/mm3 (0.1-0.6) Eos # (Auto) 0.6 K/mm3 H K/mm3 (0-0.3) Baso # (Auto) 0.1 K/mm3 K/mm3 (0.0-0.1) Abs Immat Gran (auto) 0.04 K/mm3 H K/mm3 (0.00-0.031) Absolute Neuts (auto) 4.6 K/mm3 K/mm3 (1.3-6.7) Absolute Nucleated RBC 0.0 K/mm3 K/mm3 (0.0-0.012) Nucleated RBC % 0.0 % % (0.0-0.2) Sodium 135 mmol/L L mmol/L (137-145) Potassium 4.2 mmol/L mmol/L (3.4-5.0) Chloride 108 mmol/L H mmol/L (98-107) Carbon Dioxide 24 mmol/L mmol/L (22-30) Anion Gap 3 mmol/L L mmol/L (8-16) BUN 10 mg/dL mg/dL (7-17) Creatinine 0.60 mg/dL L mg/dL (0.7-1.0) Estim Creat Clear Calc 133 ml/min ml/min Estimated GFR > 60 (59 - ) Glucose 98 mg/dL mg/dL (65-110) Lactic Acid Calcium 8.6 mg/dL mg/dL (8.4-10.2) Total Bilirubin 0.6 mg/dL mg/dL (0.2-1.3) AST 41 U/L H U/L (14-36) ALT 31 U/L U/L (6-35) Alkaline Phosphatase 111 U/L U/L (38-126) Total Protein 7.0 g/dL g/dL (6.3-8.2) Albumin 4.0 g/dL g/dL (3.5-5.1) Lipase 30 U/L U/L (23-300) Urine Color Dark yellow (Yellow) Urine Appearance Slightly cloudy (Clear) Urine pH 5.5 (5.0-9.0) Ur Specific [place] >= 1.030 (1.001-1.035) Urine Protein 1+ mg/dL H mg/dL (Negative) Urine Glucose (UA) Negative mg/dL mg/dL (Negative) Urine Ketones Trace mg/dL mg/dL (Negative) Ur Blood (Man) Trace-intact (Negative) Urine Nitrate Negative (Negative) Urine Bilirubin 1+ H (Negative) Urine Urobilinogen 1.0 mg/dL mg/dL (<2.0) Leukocyte Esterase Rfl Negative NIKHIL/UL NIKHIL/UL (Negative) Urine RBC 6-10 /hpf H /hpf
[2022-02-19] MEDS: LACTATED RINGERS 1,000 ML 30 ML IV CONT ×2 (12:30→15:33)
[2022-02-19] MEDS: ceFAZolin 2 GM/D5W 50 ML 2 GM/50 ML BAG IVPB ×2 (13:01→21:16)
[2022-02-19] MEDS: BUPIVACAINE/EPINEPHRINE 0.25% 50 ML VIAL INFILTRATE (14:37)
--- NOTE | 2022-02-19 15:18 | W.PM.PROC2 ---
Procedure Note - Detailed Date of Procedure 02/19/22 Pre-op Diagnosis Small-bowel obstruction, incarcerated recurrent incisional hernia with obstruction Post-op Diagnosis Same Procedure Performed Laparoscopic incarcerated recurrent incisional hernia repair with mesh, da Radha assisted Surgeon Kyaw Avila, DO Anesthesia General and Local (0.25% bupivacaine with epinephrine) Indications This is a 47-year-old woman who underwent open retro rectus recurrent incisional hernia repair with mesh 1 week ago and presented to the emergency department yesterday with acute onset of right periumbilical abdominal pain. Her pain was severe but she was otherwise hemodynamically stable. A CT was obtained which showed evidence of small-bowel within the retrorectus space causing a small-bowel obstruction. It appeared that the posterior rectus sheath closure had disrupted and this was causing the bowel to protrude up within the retrorectus space and caused the obstruction. Discussions were made with the patient about treatment options and decision was made to proceed with robotic assisted laparoscopic incarcerated recurrent incisional hernia repair, possible open, possible bowel resection. Findings Upon entering the abdominal cavity laparoscopically, there were some omental adhesions up to the abdominal wall. I was able a take these down with blunt dissection and identify an opening in the posterior fascia where bowel and omentum was protruding. I had to open the posterior fascial closure to adequately visualize the bowel that was incarcerated within this defect. The bowel all appeared healthy and viable and was able to be reduced. The mesh within the retrorectus space appeared flat up against the rectus muscle and the anterior fascial closure appeared intact. I then closed the posterior fascia with 0 Stratafix running absorbable suture but there still was some rents in the fascia due to how tethered and weak it was. The decision was made to overlap this entire area with a Ventralight ST 15 cm x 10 cm mesh placed in an intraperitoneal onlay mesh technique. Description of Procedure procedure as well as risks, benefits, and alternatives were discussed with the patient. Written consent was obtained and placed in chart prior to procedure. Patient was brought back to surgical suite. She was placed supine on operating table. Time-out was done to confirm patient and procedure. She was then intubated by the anesthesia department. Her abdomen was prepped and draped in sterile fashion using chlorhexidine prep. The bed was flexed slightly to extend the length between the patient's costal margin and iliac crest. An 8 mm incision was made in the left upper quadrant and a 5 mm Optiview trocar was advanced through the abdominal layers under direct visualization. Once inside the peritoneal cavity, carbon dioxide insufflation was used to create a pneumoperitoneum. The abdomen was inspected and no media abnormalities were identified except for some adhesions to the midline abdominal wall. Another 8 mm incision was made in the left lower quadrant and an 8 mm trocar was inserted under direct visualization. One more 8 mm incision was made in the left lateral abdomen an 8 mm trocar was inserted under direct visualization. The 5 mm port was removed and another 8 mm port was placed in its position. The robotic arms were secured to the ports and the robotic camera and instruments were inserted. I then moved over to the robotic console to control the camera and instruments. The abdominal cavity was carefully inspected. The omental adhesions were carefully taken down using blunt dissection with a Cadiere grasper. The opening in the posterior fascia was then identified and small bowel was identified entering up into the space. The small bowel was carefully retracted and reduced from within the retrorectus space. There appeared to be some resistance, therefore the posterior fascia was extende
[2022-02-19] MEDS: fentaNYL CITRATE INJ (*CRX) 100 MCG/2 ML VIAL 25 MCG IV PUSH ×8 (16:29→16:53)
[2022-02-19] MEDS: LACTATED RINGERS 1,000 ML 100 ML IV CONT (17:41)
[2022-02-19] MEDS: oxyCODONE/ACETAMINOPHEN (*CRX) 5-325 MG TABLET 2 TABLET PO (19:59)
[2022-02-19] MEDS: ONDANSETRON INJ 4 MG/2 ML VIAL IV PUSH (20:02)
[2022-02-20] MEDS: oxyCODONE/ACETAMINOPHEN (*CRX) 5-325 MG TABLET 2 TABLET PO ×2 (02:02→08:48)
[2022-02-20 03:13] VITALS: BP 108/74; PULSE 53; RESP 16; TEMP 36.7; O2SAT 94
[2022-02-20] MEDS: ONDANSETRON INJ 4 MG/2 ML VIAL IV PUSH ×2 (03:22→11:02)
[2022-02-20] MEDS: ceFAZolin 2 GM/D5W 50 ML 2 GM/50 ML BAG IVPB ×2 (05:25→14:19)
[2022-02-20 06:46] LABS: Hematocrit 32.6 % (37.0-47.0); Hemoglobin 10.4 g/dL (12.0-15.0); Mean Corpuscular HGB Conc 31.9 g/dl (32-36); Mean Corpuscular Hemoglobin 28.8 pg (26-34); Mean Corpuscular Volume 90.3 fl (80-100); Mean Platelet Volume 9.7 fl (7.4-10.4); Platelet Count Result 339 k/mm3 (150-375); Red Blood Count 3.61 M/mm3 (4.2-5.4); Red Cell Distribution Width 14.2 % (11.5-14.5)
[2022-02-20 07:05] LABS: Anion Gap 11 mmol/L (8-16); Blood Urea Nitrogen 7 mg/dL (7-17); Carbon Dioxide 24 mmol/L (22-30); Chloride 104 mmol/L (98-107); Estimated CRCL calculation 135 ml/min; Estimated Glomerular Filt Rate > 60; Glucose 91 mg/dL (65-110); Potassium 3.8 mmol/L (3.4-5.0); Sodium 139 mmol/L (137-145)
[2022-02-20 07:13] VITALS: BP 108/74; PULSE 56; RESP 18; TEMP 36.3; O2SAT 95
--- NOTE | 2022-02-20 07:49 | PM.PNGS ---
Progress Note: A&P Assessment and Plan (1) Recurrent incisional hernia with incarceration: Code(s): K43.0 - Incisional hernia with obstruction, without gangrene Status: Acute Assessment and Plan: Doing well on POD#1 Advance diet as tolerated Possibly home this afternoon if pain controlled, tolerating diet and activity, and remaining stable. Subjective Subjective Date/Time Seen: 02/20/22 07:49 Interval history: Pain controlled. Passing flatus. No nausea or vomiting. Tolerating clears. Exam GI: Inspection: non-distended and incision (intact with glue) GI Palp: Yes Soft to palpation and Yes Tenderness to palpation present (GI) (appropriate incisional) Auscultation: normal bowel sounds Objective Data Vital Signs Vital Signs: Vital Signs - 24 hr 02/19/22 08:00 02/19/22 08:12 02/19/22 12:31 Temperature 36.2 C L 36.7 C Pulse Rate 61 54 L Respiratory Rate 15 16 Blood Pressure 143/96 H 118/91 H Pulse Oximetry 95 98 95 Oxygen Delivery Room Air Room Air Oxygen Flow Rate 02/19/22 15:33 02/19/22 15:45 02/19/22 16:00 Temperature 36.4 C L Pulse Rate 79 64 78 Respiratory Rate 12 15 12 Blood Pressure 131/79 130/82 132/80 Pulse Oximetry 96 99 95 Oxygen Delivery Simple Face Mask Simple Face Mask Nasal Cannula Oxygen Flow Rate 10 10 2 02/19/22 16:15 02/19/22 16:30 02/19/22 16:45 Temperature Pulse Rate 65 60 51 L Respiratory Rate 19 16 12 Blood Pressure 135/82 121/76 116/74 Pulse Oximetry 98 97 98 Oxygen Delivery Nasal Cannula Nasal Cannula Nasal Cannula Oxygen Flow Rate 2 2 2 02/19/22 17:00 02/19/22 17:28 02/19/22 17:30 Temperature 36.9 C Pulse Rate 91 66 66 Respiratory Rate 12 20 20 Blood Pressure 117/72 135/84 Pulse Oximetry 98 97 97 Oxygen Delivery Nasal Cannula Nasal Cannula Oxygen Flow Rate 2 2 02/19/22 17:43 02/19/22 18:13 02/19/22 19:13 Temperature 36.7 C 36.7 C 36.6 C Pulse Rate 62 59 L 72 Respiratory Rate 19 20 18 Blood Pressure 125/81 111/80 112/71 Pulse Oximetry 100 100 99 Oxygen Delivery Oxygen Flow Rate 02/19/22 20:00 02/19/22 23:13 02/20/22 03:13 Temperature 37.2 C 36.7 C Pulse Rate 62 53 L Respiratory Rate 18 16 Blood Pressure 109/71 108/74 Pulse Oximetry 97 95 94 Oxygen Delivery Room Air Oxygen Flow Rate Intake/Output Intake/Output: Intake & Output 02/17/22 02/18/22 02/19/22 02/20/22 23:59 23:59 23:59 23:59 Intake Total 1999 2420 1600 Balance 1999 2420 1600 Meds/Results Medications: Active Medications Generic Name Dose Route Start Last Admin Trade Name Freq PRN Reason Stop Dose Admin Enoxaparin Sodium 40 mg 02/20/22 09:00 Enoxaparin 40 Mg/0.4 Ml Syringe SUB-Q DAILY KELLY Cefazolin Sodium 2 gm in 50 mls @ 100 mls/hr 02/19/22 22:00 02/20/22 05:55 Ancef 2 Gm/D5w 50 Ml IVPB 02/20/22 14:29 Infused Q8HR KELLY Infusion Ibuprofen 800 mg 02/19/22 17:06 Ibuprofen 400 Mg Tablet PO Q8H PRN Pain Rated 1-3 Morphine Sulfate 2 mg 02/19/22 17:06 Morphine Sulfate (*Crx) 2 Mg/Ml Inj IV PUSH Q2H PRN Pain Rated 4-6 Morphine Sulfate 4 mg 02/19/22 17:06 Morphine Sulfate (*Crx) 4 Mg/Ml Inj IV PUSH Q2H PRN Pain Rated 7-10 Ondansetron HCl 4 mg 02/18/22 12:31 02/20/22 03:22 Ondansetron Inj 4 Mg/2 Ml Vial IV PUSH 4 mg Q4H PRN Administration Nausea Oxycodone/Acetaminophen 1 tablet 02/19/22 17:06 Oxycodone/Acetaminophen (*Crx) 5-325 Mg Tablet PO Q4H PRN Pain Rated 4-6 Oxycodone/Acetaminophen 2 tablet 02/19/22 17:06 02/20/22 02:02 Oxycodone/Acetaminophen (*Crx) 5-325 Mg Tablet PO 2 tablet Q4H PRN Administration Pain Rated 7-10 Radiology Results: ITS Impressions Abdomen/Pelvis CT 02/18/22 11:40 IMPRESSION: 1. Small bowel superficial to the ventral mesh with small bowel obstruction. 2. Small volume of ascites. 3. Gallbladder distention, which may be secondary to fasting. Labs Labs:
[2022-02-20 08:00] VITALS: O2SAT 95
[2022-02-20] MEDS: ENOXAPARIN 40 MG/0.4 ML SYRINGE SUB-Q (08:49)
[2022-02-20 11:13] VITALS: BP 105/70; PULSE 58; RESP 16; TEMP 36.3; O2SAT 93
[2022-02-20 11:18] VITALS: O2SAT 91
--- NOTE | 2022-02-20 12:15 | PM.DS ---
DS: Admitting Diagnosis Discharge Date 02/20/2022 Admitting Diagnosis Small-bowel obstruction, incarcerated recurrent incisional hernia DS: Discharge Diagnosis Discharge Diagnosis (1) Recurrent incisional hernia with incarceration: Code(s): K43.0 - Incisional hernia with obstruction, without gangrene Status: Acute DS: Summary Hospital Course Reason for hospitalization: Small-bowel obstruction, incarcerated recurrent incisional hernia Hospital Course: This is a 47-year-old woman who presented to the emergency department on 02/18/2022 with acute worsening right-sided abdominal pain that started that morning. She is status post open recurrent incisional hernia repair with mesh with bilateral component separation on 02/11/2022. She was doing well with her postoperative recovery until the morning of 02/18. CT in the emergency department showed evidence of a posterior fascia opening with bowel protruding up into the retrorectus space causing a small-bowel obstruction. The remainder of the repair appeared intact. She was admitted to the hospital and on 02/19/2022 she underwent a robotic assisted laparoscopic incarcerated recurrent incisional hernia repair with mesh. Her bowel function was slowly returning postoperatively and her diet was able to be advanced as tolerated. Pain was well controlled on postop day 1 and she was remaining hemodynamically stable. She was discharged on postop day 1. Status at Discharge Functional status at discharge: independent ambulation Overall status at discharge: patient is progressing back to baseline Time Spent with Patient Time attestation: Total time spent providing and/or coordinating discharge services: Time spent: Less than 30 minutes Exam Resp: Effort & Inspection: normal respiratory effort Auscultation: clear to auscultation bilaterally Cardio: Rate: regular rate Rhythm: regular rhythm GI: Inspection: non-distended and incision (Intact with glue) GI Palp: Yes Soft to palpation, Yes Tenderness to palpation present (GI) (Incision) and No Guarding due to palpation present (GI) Auscultation: normal bowel sounds DS: Data Data Completed and Pending Labs on day of discharge: Labs from last 24 hours 02/20/22 02/20/22 06:09 06:09 WBC 11.0 H RBC 3.61 L Hgb 10.4 L Hct 32.6 L MCV 90.3 MCH 28.8 MCHC 31.9 L RDW 14.2 Plt Count 339 MPV 9.7 Sodium 139 Potassium 3.8 Chloride 104 Carbon Dioxide 24 Anion Gap 11 BUN 7 Creatinine 0.60 L Estim Creat Clear Calc 135 Estimated GFR > 60 Glucose 91 Calcium 8.0 L Discharge Plan Discharge Attending physician on discharge: Kyaw Clark Consulting providers: Ivy Tobin Discharging Clinician: Kyaw Clark Patient Disposition: Home, Self-Care Activity: other - see discharge instructions Diet: regular Wound Care Instructions: other - see discharge instructions Discharge Instructions: DISCHARGE INSTRUCTION SHEET FOR HERNIA, GALLBLADDER AND APPENDIX SURGERIES DR. CLARK PATIENT TO TAKE HOME 1. May shower, no soaking in bath x 2weeks. 2. Call office for: Wound increasingly painful or bleeding Vomiting Fever of greater than 101 degrees 3. If no bowel movement for three days, take 1 oz. (30 ml) Milk of Magnesia or MiraLax 17g 1 to 2 times daily. 4. No heavy lifting > 10-15 pounds x 6-8 weeks for hernia repairs. 5. No driving for 3 days or while taking narcotic pain medications. 6. Ice to surgical site for 48 hours (30 min on, then 30 min off). 7. Up walking 10-30 minutes three times per day. 8. Resume previous home medications. 9. Follow-up 10-14 days in office for wound check or as previously scheduled. ([phone]) 10. Oral pain medications prescription to be sent to pharmacy. Take Tylenol 500mg every 6 hours and Ibuprofen 600mg every 6 hours for the first 2 days, the
== END 2022-02-20 15:20 | disposition home or self-care (01) | DRG 794 ==
LOC: ANHED 09:54 → ANH3MEDSUR 13:51
PROVIDERS: Physician Assistant; Admitting Provider Surgery; Emergency Provider Emergency Medicine; PCP Nurse Practitioner Family; Visit Provider Surgery
PROC: 0WUF4JZ Supplement Abdominal Wall with Synthetic Substitute, Percutaneous Endoscopic Approach (ICD-10-PCS; principal; 2022-02-19 13:00)
DX: T81.32XA Disruption of internal operation (surgical) wound, not elsewhere classified, initial encounter (principal); K43.0 Incisional hernia with obstruction, without gangrene; F41.9 Anxiety disorder, unspecified; K21.9 Gastro-esophageal reflux disease without esophagitis; Y83.8 Other surgical procedures as the cause of abnormal reaction of the patient, or of later complication, without mention of misadventure at the time of the procedure; Z98.84 Bariatric surgery status
CPT/HCPCS: 36415; 74177; 80048; 80053; 81001; 81025; 83605; 83690; 85025; 85027; 86850; 86900; 86901; 87086; 96374; 96376; 99285; A9270; C1781; C9290; J0690; J1100; J1170; J1650; J2250; J2270; J2405; J2704; J2710; J3010; J7030; J7120; Q9967

== ENCOUNTER 2022-05-24 12:53 | Outpatient (CLI) | payer OTHER, SELFPAY ==
--- NOTE | ~2022-05-24 | CT_ITS ---
EXAMINATION: CT abdomen pelvis wo con DATE: 05/24/2022 13:46 INDICATION: Recurrent incisional hernia. TECHNIQUE: Computed tomography (CT) of the abdomen and pelvis was performed without intravenous contr ast. The dose-length product was 1464.44 mGy-cm. Automated exposure control and iterative reconstruct ion technique were employed. COMPARISON: CT dated 02/18/2022. FINDINGS: Heart size is normal. Lung bases are unremarkable. Small hiatal hernia. Surgical changes of the stomach are noted. There is mild infiltration of the mesenteric fat adjacent to the head of the pancreas, suspicious for pancreatitis. Correlate clinically. There are surgical changes of previous v entral abdominal wall hernia repair. No evidence for bowel herniation on current study. There are mil dly enlarged mesenteric and retroperitoneal lymph nodes. The liver, spleen, adrenal glands and kidneys are unremarkable. No hydronephrosis or stones. Gallblad nikki is present. Nonobstructive bowel gas pattern. Moderate thoracic spondylosis. Mild lumbar spondylo sis. No acute osseous abnormality. IMPRESSION: 1. Mesenteric stranding adjacent to the pancreatic head, suspicious for pancreatitis. Correlate clini raj. There are multiple mildly prominent mesenteric lymph nodes as well, nonspecific. 2: Surgical changes of previous ventral hernia repair. No evidence for bowel herniation on the curren t study. Reviewed, dictated and finalized at location A. [facility] IMPRESSION: 1. Mesenteric stranding adjacent to the pancreatic head, suspicious for pancrea titis. Correlate clinically. There are multiple mildly prominent mesenteric lym ph nodes as well, nonspecific. 2: Surgical changes of previous ventral hernia repair. No evidence for bowel he rniation on the current study.
== END 2022-05-24 12:54 | disposition home or self-care (01) ==
LOC: ANHIMG 12:56
PROVIDERS: PCP Nurse Practitioner Family; Visit Provider Surgery
DX: K43.0 Incisional hernia with obstruction, without gangrene (principal); R93.5 Abnormal findings on diagnostic imaging of other abdominal regions, including retroperitoneum
CPT/HCPCS: 74176